=== PATIENT | female | born 1985 | race Caucasian/White ===

== ENCOUNTER 2016-10-05 18:32 | Emergency (ER) ==
[2016-10-05 18:37] VITALS: BP 164/109
--- NOTE | 2016-10-05 18:55 | PROVIDER DOCUMENTATION ---
HPI-Musculoskeletal Pain/Inj - GENERAL Chief Complaint: Extremity Injury Stated Complaint: RT KNEE INJ 10/04-1700 Time Seen by Provider: 10/05/16 18:54 Source: patient - HX OF PRESENT ILLNESS-MUSKULOSKELTAL Nature of Presenting Problem: Pt is a 30 y/o F c chief complaint of R knee pain x 24 hrs. Pt states she stepped in a hole yesterday and felt acute pain to the medial aspect of her knee. Pt states that she has a h/o meniscus tear c arthroscopic repair years ago. On arrival, pt is able to bear weight on the knee but describes a clicking sensation when she walks. Review of Systems - Adult - REVIEW OF SYSTEMS - ADULT Constitutional: reports: no symptoms reported. denies: chills, fatique Eyes: reports: no symptoms reported. denies: blurred vision, double vision Ears, Nose, Mouth & Throat: reports: no symptoms reported. denies: ear pain, nose pain Cardiovascular: reports: no symptoms reported. denies: chest pain, orthopnea Respiratory: reports: no symptoms reported. denies: cough, shortness of breath Gastrointestinal: reports: no symptoms reported. denies: abdominal pain, nausea Genitourinary: reports: no symptoms reported. denies: dysuria, hematuria Musculoskeletal: reports: bone pain, joint pain, joint swelling Integumentary: reports: no symptoms reported. denies: hives, itching Neurological: reports: no symptoms reported. denies: numbness, paresthesia Psychiatric: reports: no symptoms reported. denies: anxiety, emotional problems Endocrine: reports: no symptoms reported. denies: cold intolerance, heat intolerance Hematologic/Lymphatic: reports: no symptoms reported. denies: blood clots, low blood count Allergic/Immunologic: reports: no symptoms reported. denies: allergic reactions , food allergy All Other Systems: Reviewed and Negative Past History - Adult - PAST MEDICAL HISTORY-ADULT Review of Records: reports: Old Records Reviewed, Nursing Assessment Review, Medications Reviewed, Social history reviewed & non-contributory. Major Childhood Illnesses: reports: denies history Cardiovascular: reports: HTN, hyperlipidemia Respiratory: reports: denies history Gastrointestinal: reports: denies history Obstetrical/Gynecological: reports: denies history Genitourinary: reports: denies history Musculoskeletal: reports: denies history Neurological: reports: headaches/migraines Psychiatric: reports: anxiety, depression Endocrine/Immune: reports: anemia Other Conditions: reports: denies history - PRIOR SURGERIES/PROCEDURES Surgical/Procedure History: reports: cholecystectomy (right knee Sx), hysterectomy, BTL, , tonsillectomy, orthopedic (extremity) (R knee), breast (reduction), other (tubal ligation) - IMMUNIZATION STATUS Childhood Immunizations: See Nurse Assessment Flu Vaccine: See Nurse Assessment - FAMILY HISTORY Family History: reviewed, not pertinent - SOCIAL HISTORY Smoking: denies Substance Use: none/never Alcohol Use Frequency: never Living Situation: family Physical Exam-Injury Related - Physical Exam-Injury Related Initial Vital Signs Reviewed: Yes General Appearance: appears well, alert, no apparent distress Eyes: PERRL/EOMI, pink conjunctivae Head, Ears, Nose, Mouth & Throat: normocephalic/atraumatic, moist mucous membranes, normal ENT inspection Neck: non-tender, full range of motion, supple Respiratory: chest non-tender, lungs clear, normal breath sounds Cardiovascular: normal peripheral pulses, regular rate, rhythm, no edema Abdominal Exam: normal bowel sounds, non tender, soft Back Exam: normal inspection, no CVA tenderness, no vertebral tenderness Extremity: tenderness (R knee ant medial tenderness on palpation; + lochman's medial; + jennyfer) Progress - PLAN OF CARE/RESULTS Progress/Plan/Lab Results: Orders Category Date Time Status Von Wrap Application DIRECTED Care 10/05/16 19:24 Active Crutches DIRECTED Care 10/05/16 19:24 Active Knee Immobilizer .right Care 10/05/16 19:24 Active KNEE 3 VIEWS RIGHT [RAD] Stat Exams 10/05/16 18:54 Taken Hydrocodone/APAP 10 mg/325 mg [Dell-10] Med 10/05/16 19:25 Discontinued 1 each PO NOW ONE Vital Signs - 24 hr 10/05/16 18:35 Temperature 97.5 F L Pulse Rate 83 Respiratory 14 Rate Blood Pressure 164/109 O2 Sat by Pulse 100 Oximetry Procedures - SPLINTING Right Lower Extremity Other Location: R knee Pre-Fabricated Splint: Knee Immobilizer, Von Wrap Applied By: stores despatch hand Assisted By: ED Nurse Post Procedure Neurovascular Exam: Intact Procedure Comment: well tolerated, crutches given Departure - Departure Time of Disposition Order: 19:23 DIAGNOSIS: Strain of right knee Qualifiers: Encounter type: initial encounter Qualified Code(s): S86.911A - Strain of unspecified muscle(s) and tendon(s) at lower leg level, right leg, initial encounter Disposition: HOME 01 Certified Medical Emergency: Emergent Condition: Stable Additional Instructions: ED Follow Up Instructions: You have been treated by a care provider in the Emergency Department. These instructions are being provided to you so you can have an understanding of how to care for yourself upon discharge. Upon discharge from the Emergency Department, you are responsible for making arrangements for follow-up care by a physician of your choice. Take all prescribed medications as directed. Return to the Emergency Department immediately for any new or worsening symptoms. You may call the Physician Referral phone number at [phone] to obtain a list of Physicians who are taking new patients. Prescriptions: Ibuprofen [Motrin] 800 mg PO Q8H PRN PRN #20 tablet PRN Reason: inflammation Omeprazole [Prilosec] 20 mg PO DAILY@0700 #20 capsule Tramadol [Ultram] 50 mg PO Q8HR #14 tablet Referrals: Tracie Fallon MD [STAFF PHYSICIAN] - Attestation - Physician/ BARRY Attestation Patient care was provided by Advanced Practice Provider:: Yes Advanced Practice Provider:: Demian Mason Advanced Practice Provider documentation review:: The Mid-level provider documentation, treatment plan and medical decision making was reviewed by the physician who agrees with all treatment and medical decision making by the MLP.
[2016-10-05] MEDS ORDERED: NORCO-10 PO ONE (19:25)
--- NOTE | 2016-10-06 07:31 | Diag Imaging Result Document ---
PROCEDURE NAME: KNEE 3 VIEWS RIGHT - 10/05/2016 RIGHT KNEE, THREE VIEWS: FINDINGS: No fracture. No dislocation. No arthritic changes. No other bony abnormality. IMPRESSION: Negative exam.
== END 2016-10-05 19:44 | disposition home or self-care (01) ==
LOC: ED 18:32
DX: S86.911A Strain of unspecified muscle(s) and tendon(s) at lower leg level, right leg, initial encounter (principal); M25.561 Pain in right knee; M25.461 Effusion, right knee; I10 Essential (primary) hypertension; E78.5 Hyperlipidemia, unspecified; R51 Headache; W19.XXXA Unspecified fall, initial encounter; Z79.899 Other long term (current) drug therapy